=== PATIENT | female | born 1990 | race Caucasian/White ===

== ENCOUNTER 2016-05-26 01:33 | Emergency (ER) | payer OTHER ==
[2016-05-26 01:58] VITALS: BP 124/76; PULSE 84; TEMP 98.8; BMI 35.5
--- NOTE | 2016-05-26 02:25 | PDOC ---
History of Present Illness - General Chief Complaint: Pain Stated Complaint: PAIN ON RIGHT SIDE Time Seen by Provider: 05/26/16 02:16 History Source: Patient Exam Limitations: No Limitations - History of Present Illness Travel History: No Initial Comments: 05/26/16 02:17 25-year-old female who complains of sudden onset of abdominal pain which radiates to her back on the right side. the patient has significant surgical historyof gastric bypass 3 years prior. Patient states that she has been nauseous without vomiting. Patient denies any chest pain, no shortness of breath, no fever, no chills, no dyspnea, no dysphagia, no headache, no blurry vision, no hematuria, no dysuria, no vaginal discharge, no vomiting, no diarrhea , no bloody stools. Timing/Duration: reports: getting worse Quality: reports: moderate, severe Abdominal Pain Onset Location: reports: RLQ Pain Radiation: reports: back Activities at Onset: reports: none Aggravating Factors: improves with: None Alleviating Factors: improves with: None Past History - Past Medical History Allergies/Adverse Reactions: Allergies Allergy/AdvReac Type Severity Reaction Status Date / Time No Known Allergies Allergy Verified 05/26/16 01:52 Home Medications: Ambulatory Orders NK [No Known Home Medication] 05/26/16 Anemia: No Asthma: No COPD: No - Psycho/Social/Smoking Cessation Hx Suicidal Ideation: No Smoking Status: No Smoking History: Never smoked Have you smoked in the past 12 months: No Number of Cigarettes Smoked Daily: 0 Information on smoking cessation initiated: No Hx Alcohol Use: No Drug/Substance Use Hx: No *Physical Exam - Vital Signs Last Vital Signs Temp Pulse Resp BP Pulse Ox 98.8 F 84 14 124/76 100 05/26/16 01:53 05/26/16 01:53 05/26/16 01:53 05/26/16 01:53 05/26/16 01:53 - Physical Exam General Appearance: Yes: Appropriately Dressed. No: Apparent Distress Respiratory/Chest: positive: Lungs Clear, Normal Breath Sounds, Respiratory Distress. negative: Chest Tender, Accessory Muscle Use, Decreased Breath Sounds , Paradoxal Breathing, Crackles, Rales, Rhonchi, Stridor, Wheezing, Hyperresonant, Plerual Rub Cardiovascular: positive: Regular Rhythm, Regular Rate, S1, S2. negative: Bradycardia, Diastolic Murmur, Systolic Murmur, Gallop/S3, Gallop/S4, Irregularly Irregular, Irregular Gastrointestinal/Abdominal: positive: Soft, Organomegaly, Tenderness Musculoskeletal: positive: CVA Tenderness (R) Extremity: positive: Normal Capillary Refill, Normal Inspection, Normal Range of Motion, Pelvis Stable Integumentary: positive: Normal Color, Dry, Warm Neurologic: positive: engineering secretary II-XII NML intact, Fully Oriented, Alert, Normal Mood/ Affect, Normal Response, Motor Strength 09/27 ED Treatment Course - LABORATORY CBC & Chemistry Diagram: 05/26/16 02:24 05/26/16 02:24 Progress Note - Progress Note Progress Note: Patient examined here in ER. Patient had labs drawn and are within acceptable limits. UA done suggestive of UTI. Patient had first dose PO ABx here in ER. CT done shows NADP. Medical Decision Making - Medical Decision Making 05/26/16 06:35 Patient to be discharged home with oral Abx. Patient to follow up with PCP as needed. *DC/Admit/Observation/Transfer Diagnosis at time of Disposition: Urinary tract infection Qualifiers: Urinary tract infection type: acute cystitis Hematuria presence: without hematuria Qualified Code(s): N30.00 - Acute cystitis without hematuria - Discharge Dispostion Disposition: HOME Condition at time of disposition: Stable Admit: No
[2016-05-26 02:34] LABS: MCH 27.3 pg (25.7-33.7); MCHC 31.6 g/dl (32.0-36.0); MEAN CELL VOLUME 86.2 fl (80-96); MEAN PLT VOLUME 7.8 fl (7.5-11.1); PLATELET COUNT 273 K/MM3 (134-434); RDW 15.2 % (11.6-15.6); WHITE BLOOD COUNT 6.9 K/mm3 (4.0-10.0)
[2016-05-26 02:58] LABS: AMYLASE 91 U/L (25-115); ANION GAP 13 (8-16); BILIRUBIN,TOTAL 0.4 mg/dL (0.2-1.0); C-REACTIVE PROTEIN < 0.3 MG/DL (0.00-0.3); CALCIUM 8.3 mg/dL (8.5-10.1); CO2 25 mmol/L (21-32); CREATININE 0.8 mg/dL (0.55-1.02); GLUCOSE,RANDOM 84 mg/dL (74-106); SGOT/AST 31 U/L (15-37); SGPT/ALT 21 U/L (12-78); TOT PROT 7.9 g/dl (6.4-8.2)
[2016-05-26 02:59] LABS: ALK PHOS 61 U/L (45-117)
[2016-05-26 03:09] LABS: URINE APPEARANCE CLOUDY; URINE BILIRUBIN NEGATIVE (NEGATIVE); URINE BLOOD NEGATIVE (NEGATIVE); URINE COLOR DKYELLOW; URINE GLUCOSE (UA) NEGATIVE (NEGATIVE); URINE KETONE TRACE (NEGATIVE); URINE NITRITE NEGATIVE (NEGATIVE); URINE PROTEIN NEGATIVE (NEGATIVE); URINE UROBILINOGEN 2.0 E.U/dl E.U./dl (0.2-1.0)
[2016-05-26 03:21] LABS: URINE LEUK ESTERASE 3+ (NEGATIVE)
[2016-05-26 03:23] LABS: URINE BACTERIA FEW /hpf (NONE SEEN); URINE MUCUS RARE; URINE RBC 6 /hpf (0-3); URINE WBC 18 /hpf (3-5)
[2016-05-26] MEDS ORDERED: KETOROLAC TROMETHAMINE 30 MG/1 ML VIAL ONE (03:59)
[2016-05-26] MEDS ORDERED: KETOROLAC TROMETHAMINE 30 MG/1 ML VIAL IVPUSH ONE (04:01)
[2016-05-26] MEDS ORDERED: CIPROFLOXACIN 250 MG TABLET (RESTRICTED TO ID) PO ONE (04:34)
== END 2016-05-26 06:58 | disposition home or self-care (01) ==
LOC: JER 01:33
PROC: 3E0333Z Introduction of Anti-inflammatory into Peripheral Vein, Percutaneous Approach (ICD-10-PCS; principal; 2016-05-26)
DX: N30.00 Acute cystitis without hematuria (principal); Z98.84 Bariatric surgery status
CPT/HCPCS: 36415; 74176-TC; 80053; 81003; 81015; 82150; 83690; 84703; 85025; 86140; 87086; 96374; 99283-25

== ENCOUNTER 2016-10-15 18:36 | Emergency (ER) | payer OTHER ==
[2016-10-15 19:00] VITALS: BP 131/76; PULSE 80; TEMP 98.3; BMI 34.3
[2016-10-15 19:47] LABS: URINE APPEARANCE CLEAR; URINE BILIRUBIN NEGATIVE (NEGATIVE); URINE BLOOD NEGATIVE (NEGATIVE); URINE COLOR YELLOW; URINE GLUCOSE (UA) NEGATIVE (NEGATIVE); URINE KETONE TRACE (NEGATIVE); URINE NITRITE NEGATIVE (NEGATIVE); URINE PROTEIN NEGATIVE (NEGATIVE); URINE UROBILINOGEN 2.0 E.U/dl E.U./dl (0.2-1.0)
--- NOTE | 2016-10-15 19:51 | PDOC ---
*Physical Exam - Vital Signs Last Vital Signs Temp Pulse Resp BP Pulse Ox 98.3 F 80 18 131/76 100 10/15/16 18:56 10/15/16 18:56 10/15/16 18:56 10/15/16 18:56 10/15/16 18:56 - Physical Exam General Appearance: Yes: Appropriately Dressed. No: Apparent Distress Neck: negative: Tender, Rigid Respiratory/Chest: positive: Lungs Clear Gastrointestinal/Abdominal: positive: Soft. negative: Tender, Organomegaly ED Treatment Course - ADDITIONAL ORDERS Additional order review: Laboratory Results 10/15/16 19:30 Urine HCG, Qual Positive Medical Decision Making - Medical Decision Making 10/15/16 19:49 wants test only; no COs *DC/Admit/Observation/Transfer Diagnosis at time of Disposition: test positive - Discharge Dispostion Disposition: HOME Condition at time of disposition: Stable Admit: No - Post Discharge Activity Work/School Note: Back to Work
[2016-10-15 19:54] LABS: URINE LEUK ESTERASE 1+ (NEGATIVE)
[2016-10-15 20:00] LABS: URINE MUCUS FEW; URINE RBC 3 /hpf (0-3); URINE WBC 3 /hpf (3-5)
--- NOTE | 2016-10-15 20:03 | PDOC ---
*Physical Exam - Vital Signs Last Vital Signs Temp Pulse Resp BP Pulse Ox 98.3 F 80 18 131/76 100 10/15/16 18:56 10/15/16 18:56 10/15/16 18:56 10/15/16 18:56 10/15/16 18:56 ED Treatment Course - ADDITIONAL ORDERS Additional order review: Laboratory Results 10/15/16 19:30 Urine Color Yellow Urine Appearance Clear Urine pH 5.0 Urine Protein Negative Urine Glucose (UA) Negative Urine Ketones Trace H Urine Blood Negative Urine Nitrite Negative Urine Bilirubin Negative Urine Urobilinogen 2.0 e.u/dl H Ur Leukocyte Esterase 1+ H D Urine HCG, Qual Positive - Additional Consults Reason/Comments: please follow up with Urine culture; you may need a urine culture *DC/Admit/Observation/Transfer Diagnosis at time of Disposition: test positive Urinary tract infection in mother during Qualifiers: Trimester: first trimester Qualified Code(s): O23.41 - Unspecified infection of urinary tract in , first trimester - Discharge Dispostion Disposition: HOME Condition at time of disposition: Stable - Referrals Referrals: Mireille Farrell NP [Primary Care Provider] - - Patient Instructions - Post Discharge Activity Work/School Note: Back to Work
== END 2016-10-15 20:20 | disposition home or self-care (01) ==
LOC: JER 18:36 → JERFT 18:36
DX: Z32.01 Encounter for pregnancy test, result positive (principal)
CPT/HCPCS: 81003; 81015; 84703; 87086; 99281-25

== ENCOUNTER 2016-12-08 12:28 | Emergency (ER) | payer OTHER ==
[2016-12-08 12:43] VITALS: BP 117/64; PULSE 74; TEMP 99.1; BMI 35.0
--- NOTE | 2016-12-08 14:06 | PDOC ---
History of Present Illness - General Chief Complaint: Vaginal Bleeding Stated Complaint: BLEEDING (14 WKS ) Time Seen by Provider: 12/08/16 13:31 History Source: Patient Exam Limitations: No Limitations - History of Present Illness Initial Comments: 12/08/16 13:59 Patient is a 26-year-old f, 14 weeks . LMP 09/10/16. . Presents to the ER with vaginal bleedingonly noted on the paper when wiping. Patient reports that last night she had intercourse with her . In the am after using the facilities noted blood on the paper after wiping. No active bleeding , minor cramping, which she reports that she has been having. No other vaginal discharge. No fever, no n/v/d. Allergies: No known allergies Medications: Family History: Non-contributory Social History: Denies smoking, alcohol use, or IVDU Review of Systems GENERAL/CONSTITUTIONAL: No fever or chills. No weakness. No weight change. HEAD, EYES, EARS, NOSE AND THROAT: No change in vision. No ear pain or discharge. No sore throat. CARDIOVASCULAR:No chest pain or shortness of breath. RESPIRATORY: No cough, wheezing, or hemoptysis. GASTROINTESTINAL: No nausea, vomiting, diarrhea or constipation. No rectal bleeding. GENITOURINARY: No dysuria, frequency, or change in urination. No hematuria, blood only noted when wiping. MUSCULOSKELETAL: No joint or muscle swelling or pain. No neck or back pain. SKIN : No rash or easy bruising. Physical Exam: GENERAL: The patient is awake, alert, and fully oriented, in no acute distress. EYES: Pupils equal, round and reactive to light, extraocular movements intact, sclera anicteric, conjunctiva clear. ENT: Ears normal, nares patent, oropharynx clear without exudates. Moist mucous membranes. No uvula deviation NECK: Normal range of motion, supple without lymphadenopathy, JVD, or masses. LUNGS: Breath sounds equal, clear to auscultation bilaterally. No wheezes, and no crackles. HEART: Regular rate and rhythm, normal S1 and S2 without murmur, rub or gallop. ABDOMEN: Soft, nontender, normoactive bowel sounds. No guarding, no rebound. No masses. No bruising or abrasions GENITALIA: Cervical os is closed, no bleeding noted in vault. MUSCULOSKELETAL: Normal range of motion, no edema. No clubbing or cyanosis. No cords, erythema, or tenderness. No CVA Tenderness with fist palpation. SKIN: Warm, Dry, normal turgor, no rashes or lesions noted. Past History - Past Medical History Allergies/Adverse Reactions: Allergies Allergy/AdvReac Type Severity Reaction Status Date / Time No Known Allergies Allergy Verified 12/08/16 12:43 Home Medications: Ambulatory Orders Ciprofloxacin 500 mg PO BID #10 ml 05/26/16 Anemia: No Asthma: No COPD: No - Surgical History GI Surgery: Yes (Gastric bypass) - Reproductive History Is Patient Now?: Yes (#): 3 Para: 2 - Psycho/Social/Smoking Cessation Hx Anxiety: No Suicidal Ideation: No Smoking Status: No Smoking History: Never smoked Have you smoked in the past 12 months: No Number of Cigarettes Smoked Daily: 0 Hx Alcohol Use: No Drug/Substance Use Hx: No Substance Use Type: None *Physical Exam - Vital Signs Last Vital Signs Temp Pulse Resp BP Pulse Ox 99.1 F 74 20 117/64 100 12/08/16 12:41 12/08/16 12:41 12/08/16 12:41 12/08/16 12:41 12/08/16 12:41 ED Treatment Course - LABORATORY CBC & Chemistry Diagram: 12/08/16 13:50 - RADIOLOGY Radiology Studies Ordered: Category Date Time Status TRANSVAGINAL US PREG [US] Stat Ultrasound 12/08/16 13:46 Ordered Medical Decision Making - Medical Decision Making 12/08/16 14:06 A/P: Patient here for vaginal bleeding, currently 14 weeks . Plan: CBC, type and screen Beta HcG transvaginal US. Laboratory Tests 12/08/16 12/08/16 12/08/16 13:50 13:50 13:50 WBC 6.2 RBC 3.92 Hgb 11.8 Hct 34.9 MCV 89.2 MCH 30.2 D MCHC 33.9 RDW 14.8 Plt Count 207 D MPV 7.8 Neutrophils % 61.4 D Lymphocytes % 31.1 D Monocytes % 6.6 Eosinophils % 0.3 Basophils % 0.6 Beta HCG, Quant 44508.9 Urine Color Yellow Urine Appearance Clear Urine pH 6.0 Ur Specific [place] 1.020 Urine Protein Negative Urine Glucose (UA) Negative Urine Ketones Negative Urine Blood 1+ H Urine Nitrite Negative Urine Bilirubin Negative Urine Urobilinogen 2.0 H Ur Leukocyte Esterase Negative Urine RBC <1 Urine WBC 1 Ur Epithelial Cells Rare Urine Mucus Rare Beta hCG consistent with intrauterine 12-15 weeks. Ultrasound consistent with 12 week 5 day . Patient can follow up with Dr. Buckner , postcoital irritation. If any increased vaginal bleeding, cramping, or any other concerns may return to ER or return in 48 hours for recheck a beta hCG. Patient verbalized understanding. I discussed the physical exam findings, ancillary test results and final diagnoses with the patient. I answered all of the patient's questions. The patient was satisfied with the care received and felt comfortable with the discharge plan and treatment plan. The patient will call to arrange follow-up and will return to the Emergency Department with any new, persistent or worsening symptoms. 12/10/16 13:10 *DC/Admit/Observation/Transfer Diagnosis at time of Disposition: Intrauterine - Discharge Dispostion Disposition: HOME Condition at time of disposition: Good Admit: No - Referrals Referrals: Juan Pagan MD [Primary Care Provider] - Gage Buckner MD [Staff Physician] - - Patient Instructions Additional Instructions: Please return to the ER if any increased vaginal bleeding, pain or other concerns. Follow up with Dr. Buckner in the next few days.
[2016-12-08 14:24] LABS: BASOPHIL 0.6 % (0-2.0); EOSINOPHIL 0.3 % (0-4.5); MCH 30.2 pg (25.7-33.7); MCHC 33.9 g/dl (32.0-36.0); MEAN CELL VOLUME 89.2 fl (80-96); MEAN PLT VOLUME 7.8 fl (7.5-11.1); NEUTROPHILS 61.4 % (42.8-82.8); PLATELET COUNT 207 K/MM3 (134-434); RDW 14.8 % (11.6-15.6); WHITE BLOOD COUNT 6.2 K/mm3 (4.0-10.0)
[2016-12-08 14:26] LABS: URINE APPEARANCE CLEAR; URINE BILIRUBIN NEGATIVE (NEGATIVE); URINE BLOOD 1+ (NEGATIVE); URINE COLOR YELLOW; URINE GLUCOSE (UA) NEGATIVE (NEGATIVE); URINE KETONE NEGATIVE (NEGATIVE); URINE LEUK ESTERASE NEGATIVE (NEGATIVE); URINE NITRITE NEGATIVE (NEGATIVE); URINE PROTEIN NEGATIVE (NEGATIVE)
[2016-12-08 14:29] LABS: URINE MUCUS RARE; URINE RBC <1 /hpf (0-3); URINE WBC 1 /hpf (3-5)
== END 2016-12-08 17:32 | disposition home or self-care (01) ==
LOC: JER 12:28
DX: O20.8 Other hemorrhage in early pregnancy (principal); Z3A.14 14 weeks gestation of pregnancy
CPT/HCPCS: 36415; 76817-TC; 81003; 81015; 84702; 85025; 86850; 86900; 86901; 87086; 99283-25

== ENCOUNTER 2018-04-09 10:15 | Day surgery (SDC) | payer OTHER ==
[2018-04-07 13:28] VITALS: BMI 38.7
[2018-04-09] MEDS ORDERED: BUPIVACAINE HCL/PF 2.5 MG/ML - 30 ML VIAL IJ ONE (12:40)
[2018-04-09] MEDS ORDERED: oxyCODONE HCL 5 MG TABLET PO PRN (14:10)
[2018-04-09] MEDS ORDERED: ONDANSETRON 4 MG/2 ML VIAL IVPUSH PRN (14:10)
[2018-04-09] MEDS ORDERED: LACTATED RINGERS SOLUTION 1,000 ML IV SCH (14:15)
[2018-04-09] MEDS ORDERED: ONDANSETRON 4 MG/2 ML VIAL IVPUSH ONE (14:28)
--- NOTE | 2018-04-09 15:06 | OP ---
DATE OF OPERATION: 04/09/2018 PREOPERATIVE DIAGNOSIS: Right knee loose bodies. POSTOPERATIVE DIAGNOSIS: Right knee loose bodies. PROCEDURE: Right knee arthroscopy with excision of loose bodies. SURGEON: Bradly Gilbert MD POSTOPERATIVE CONDITION: Stable. COMPLICATIONS: None. INDICATIONS: This is a pleasant 27-year-old female who is having mechanical symptoms of the right knee. MRI demonstrated patellofemoral chondral breakdown as well as multiple loose bodies. Treatment options including nonoperative versus operative measures were reviewed. Operative risks were reviewed in detail including bleeding, infection, neurovascular injury, need for further surgery, postoperative pain and stiffness, formation of further loose bodies, production of osteoarthritis. We discussed medical risks such as heart attack, stroke, DVT, PE, and . I reviewed the rehabilitation after surgery. I addressed all the patient's questions and concerns. She voiced understanding and elected to proceed. DESCRIPTION OF PROCEDURE: The patient was brought to the operating room where general anesthesia was administered. The right lower extremity was then prepped and draped in the usual sterile fashion. A preoperative dose of antibiotics was given, and the usual timeout procedure was performed. The portal sites were then marked out and injected subcutaneously with 0.25% Marcaine. The lateral portal was now established, and the arthroscope was passed into the knee. Examination of the patellofemoral joint demonstrated high-grade fraying and fissuring and chondral loss of the patella side. The trochlea demonstrated wear and partial thickness chondral loss. The arthroscope was passed down the notch. Here, ACL and PCL seem to be intact. The arthroscope was passed into the medial compartment. Here, loose bodies were visualized. Medial portal was established under spinal needle localization. Loose body was removed here. The meniscus was inspected and found to be unremarkable. The chondral surfaces were unremarkable. The arthroscope was passed into the lateral compartment. There was a complex tear noted mainly at the anterior horn of the lateral meniscus which was debrided using a shaver. The arthroscope was now passed into the rest of the compartment, and the posterior horn and body were noted to be okay. There was partial, mild, chondral fraying. The arthroscope was now passed back into the suprapatellar pouch. Here, another loose body was identified. This was again removed from the knee. At this point, the arthroscope was passed around several times. The posterior aspect was inspected, the gutters were inspected, and no additional loose bodies were seen. Portals were sutured using 3-0 nylon. Sterile dressing was placed. The patient was extubated and transferred to recovery room in stable condition. Diane WRIGHT/[id number]
[2018-04-09] MEDS ORDERED: oxyCODONE HCL 5 MG TABLET ONE (15:29)
[2018-04-09 17:14] VITALS: BP 112/65; PULSE 85; TEMP 98
--- NOTE | 2018-04-17 12:07 | PATH ---
Surgical Pathology Report Patient Name: PRASHANT TORRES Med. Rec. #: [id number] /Age/Gender: 1990 (Age: 27) / F Account: [id number] Location: [facility] AMBULATORY Taken: 04/09/2018 Received: 04/09/2018 Reported: 04/17/2018 Physicians: Bradly Gilbert M.D. Specimen(s) Received RIGHT KNEE LOOSE BODY Clinical History Right knee loose body Final Diagnosis LOOSE BODIES, RIGHT KNEE, REMOVAL: LOOSE BODIES. Electronically Signed Daphne Bear M.D. Gross Description Received in formalin labeled "loose bodies right knee," are 4 portions of cartilage and bone ranging from 0.6 x 0.3 x 0.2 cm to 1.5 x 1.3 x 0.7 cm. [employer] Director sections are submitted in one cassette, following decalcification. 04/10/201804/10/2018
== END 2018-04-09 16:15 | disposition home or self-care (01) ==
LOC: FASU 10:15
PROVIDERS: ATTEND Orthopaedic Surgery Sports Medicine
PROC: 0SCC4ZZ Extirpation of Matter from Right Knee Joint, Percutaneous Endoscopic Approach (ICD-10-PCS; principal; 2018-04-09 11:45)
DX: M23.41 Loose body in knee, right knee (principal)
CPT/HCPCS: 84703; 88304-TC; 94760

== ENCOUNTER 2018-05-08 12:22 | Day surgery (SDC) | payer OTHER ==
[2018-05-07 14:05] VITALS: BMI 41.3
[2018-05-08 14:22] VITALS: TEMP 97.9
[2018-05-08 15:05] VITALS: BP 124/70; PULSE 67
--- NOTE | 2018-05-12 16:58 | PATH ---
Surgical Pathology Report Patient Name: PRASHANT TORRES Med. Rec. #: [id number] /Age/Gender: 1990 (Age: 27) / F Account: [id number] Location: [facility]ENDOS[facility] Taken: 05/08/2018 Received: 05/11/2018 Reported: 05/12/2018 Physicians: Alan Dempsey D.O. 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 GASTROENTERIC ANASTOMOSIS, BIOPSY: GASTRIC AND SMALL BOWEL (JUNCTIONAL) MUCOSA WITH MILD CHRONIC INFLAMMATION AND PROMINENT LYMPHOID AGGREGATES. IMMUNOHISTOCHEMICAL STAIN FOR H. PYLORI IS NEGATIVE. B. GASTRIC POUCH, BIOPSY: GASTRIC MUCOSA WITH MILD CHRONIC GASTRITIS. IMMUNOHISTOCHEMICAL STAIN FOR H. PYLORI IS NEGATIVE. Electronically Signed Nereida Pecae M.D. Gross Description A. Received in formalin, labeled "gastroenteric anastomosis" are 3 willard, irregular portions of soft tissue ranging from 0.2-0.3 cm. in greatest dimension. The specimens are submitted in toto in one cassette. B. Received in formalin, labeled "biopsy gastric pouch" are 2 willard, irregular portions of soft tissue averaging 0.5 cm. in greatest dimension. The specimens are submitted in toto in one cassette. 05/11/2018 [facility]05/11/2018
== END 2018-05-08 14:58 | disposition home or self-care (01) ==
LOC: JASU-ENDO 12:22
PROVIDERS: ATTEND Internal Medicine Gastroenterology
PROC: 0DB68ZX Excision of Stomach, Via Natural or Artificial Opening Endoscopic, Diagnostic (ICD-10-PCS; principal; 2018-05-08 13:30)
DX: K29.50 Unspecified chronic gastritis without bleeding (principal); K63.89 Other specified diseases of intestine; E78.5 Hyperlipidemia, unspecified
CPT/HCPCS: 84703; 88305-TC; 88342-TC

== ENCOUNTER 2018-05-28 09:11 | Day surgery (SDC) | payer OTHER ==
[2018-05-28 09:21] VITALS: BMI 41.1
[2018-05-28] MEDS ORDERED: SODIUM CHLORIDE 1,000 ML IV STA ×2 (09:40→12:40)
[2018-05-28] MEDS ORDERED: ONDANSETRON 4 MG/2 ML VIAL IVPUSH ONE (09:40)
[2018-05-28] MEDS ORDERED: ACETAMINOPHEN 1000 MG/100 ML VIAL (NON FORMULARY) IVPB ONE (09:48)
[2018-05-28] MEDS ORDERED: ONDANSETRON 4 MG/2 ML VIAL ONE (09:56)
[2018-05-28] MEDS ORDERED: ACETAMINOPHEN INJECTION 100 ML IVPB ONE (09:56)
--- NOTE | 2018-05-28 10:11 | PDOC ---
*Physical Exam - Vital Signs Last Vital Signs Temp Pulse Resp BP Pulse Ox 99.5 F 102 H 18 109/70 100 05/28/18 09:18 05/28/18 09:18 05/28/18 09:18 05/28/18 09:18 05/28/18 09:18 ED Treatment Course - LABORATORY CBC & Chemistry Diagram: 05/29/18 05:15 05/29/18 05:15 Medical Decision Making - Medical Decision Making 05/28/18 10:10 Case reviewed with DARRON Johnson. Plan as per [employer]. *DC/Admit/Observation/Transfer Diagnosis at time of Disposition: Cholecystitis - Discharge Dispostion Disposition: HOME Condition at time of disposition: Good - Prescriptions - Referrals - Patient Instructions - Post Discharge Activity
--- NOTE | 2018-05-28 10:23 | PDOC ---
History of Present Illness - General Chief Complaint: Pain Stated Complaint: PAIN Time Seen by Provider: 05/28/18 09:26 History Source: Patient Exam Limitations: No Limitations - History of Present Illness Travel History: No Initial Comments: 05/28/18 10:20 27 y/o female who was seen by Dr. Garvin last week for gallstones has a cholystectomy scheduled for 06/13 but due to the pain, fver, and nausea increasing over the past 2-3 days, she came to the ED and notified Dr. Garvin. The patient denies urinary or bowel complaints. Pt also denies RLQ pain which she describes a RUQ sharp gnawing discomfort. Timing/Duration: reports: constant, getting worse Quality: reports: moderate, cramping, sharpness Abdominal Pain Onset Location: reports: RUQ Pain Radiation: reports: no radiation Activities at Onset: reports: none Aggravating Factors: improves with: None Alleviating Factors: improves with: None Past History - Travel Traveled outside of the country in the last 30 days: No Close contact w/someone who was outside of country & ill: No - Past Medical History Allergies/Adverse Reactions: Allergies Allergy/AdvReac Type Severity Reaction Status Date / Time No Known Allergies Allergy Verified 12/08/16 12:43 Home Medications: Ambulatory Orders Omeprazole 40 mg PO DAILY 05/28/18 Anemia: No Asthma: No Cancer: No Cardiac Disorders: No CVA: No COPD: No CHF: No Dementia: No Diabetes: No GI Disorders: Yes (GERD) Disorders: No HTN: No Hypercholesterolemia: No Liver Disease: No Seizures: No Thyroid Disease: No - Surgical History Abdominal Surgery: Yes (GASTRIC BYPASS 2012) Appendectomy: No Cardiac Surgery: No Cholecystectomy: No GI Surgery: Yes (Gastric bypass) Lung Surgery: No Neurologic Surgery: No Orthopedic Surgery: No - Reproductive History (#): 3 Para: 2 - Immunization History Immunization Up to Date: Yes - Suicide/Smoking/Psychosocial Hx Smoking Status: No Smoking History: Never smoked Have you smoked in the past 12 months: No Number of Cigarettes Smoked Daily: 0 Hx Alcohol Use: No Drug/Substance Use Hx: No Substance Use Type: Alcohol Hx Substance Use Treatment: No Patient Lives Alone: No Lives with/in: spouse/SO Abd/GI Specific PMHX - Complaint Specific PMHX GERD: Yes Review of Systems - Review of Systems Able to Perform ROS?: Yes Constitutional: Yes: Fever HEENTM: No: Symptoms Reported Respiratory: No: Symptoms reported Cardiac (ROS): No: Symptoms Reported ABD/GI: Yes: Nausea, Poor Appetite, Vomiting, Abdominal cramping. No: Constipated, Diarrhea, Poor Fluid Intake : No: Symptoms Reported Musculoskeletal: No: Symptoms Reported Integumentary: No: Symptoms Reported Neurological: No: Symptoms reported *Physical Exam - Vital Signs Last Vital Signs Temp Pulse Resp BP Pulse Ox 99.5 F 102 H 18 109/70 100 05/28/18 09:18 05/28/18 09:18 05/28/18 09:18 05/28/18 09:18 05/28/18 09:18 - Physical Exam General Appearance: Yes: Nourished, Appropriately Dressed. No: Apparent Distress Respiratory/Chest: positive: Lungs Clear, Normal Breath Sounds. negative: Respiratory Distress, Accessory Muscle Use Cardiovascular: positive: Regular Rhythm, Tachycardia. negative: Murmur Gastrointestinal/Abdominal: positive: Soft, Tenderness (ruq , + murphys, mild RLQ tenderness, no flank tenderness) Musculoskeletal: negative: CVA Tenderness Extremity: positive: Normal Capillary Refill. negative: Pedal Edema Integumentary: positive: Normal Color, Warm, Moist Neurologic: positive: Motor Strength 5/5 (ambulatory) Moderate Sedation - Procedure Monitoring Vital Signs: Procedure Monitoring Vital Signs Temperature 99.5 F 05/28/18 09:18 Pulse Rate 102 H 05/28/18 09:18 Respiratory Rate 18 05/28/18 09:18 Blood Pressure 109/70 05/28/18 09:18 O2 Sat by Pulse Oximetry (%) 100 05/28/18 09:18 ED Treatment Course - LABORATORY CBC & Chemistry Diagram: 05/28/18 09:49 05/28/18 09:49 - RADIOLOGY Radiology Studies Ordered: Category Date Time Status GALLBLADDER US [US] Stat Ultrasound 05/28/18 10:17 Ordered Medical Decision Making - Medical Decision Making 05/28/18 10:24 CC: ruq pain with n/v/fever, recent dx of gallstones , sched sx date 06/13 w/ Dr Garvin Exam: RUQ tenderness, tachy, low grade temp Plan: urine, fluids, iv tylenol, zofran, labs, and gallbladder u/s ordered 05/28/18 12:08 Laboratory Tests 05/08/18 05/28/18 05/28/18 12:38 09:49 09:49 WBC 4.9 Hgb 13.0 Hct 37.6 Neutrophils % 86.4 H D Lymphocytes % 6.8 L D Sodium Potassium Chloride Carbon Dioxide Anion Gap BUN Creatinine Random Glucose Calcium Urine Ketones Trace H Urine Urobilinogen 2.0 H Ur Leukocyte Esterase 1+ H Urine WBC (Auto) 11 Urine RBC (Auto) 2 Urine HCG, Qual Negative 05/28/18 09:49 WBC Hgb Hct Neutrophils % Lymphocytes % Sodium 138 Potassium 4.1 Chloride 106 Carbon Dioxide 24 Anion Gap 8 BUN 13 Creatinine 0.7 Random Glucose 102 Calcium 8.2 L Urine Ketones Urine Urobilinogen Ur Leukocyte Esterase Urine WBC (Auto) Urine RBC (Auto) Urine HCG, Qual Spoke to Dr. Garvin the surgeon and is recommending keeping patient nothing by mouth. Please ordered for IV cefazolin urine culture added. Nothing by mouth status ordered *DC/Admit/Observation/Transfer Diagnosis at time of Disposition: Cholecystitis - Discharge Dispostion Decision to Admit order: Yes - Referrals - Patient Instructions - Post Discharge Activity
[2018-05-28 10:33] LABS: BASO % 0.2 % (0-2.0); EOS % 0.4 % (0-4.5); HEMATOCRIT 37.6 % (32.4-45.2); LYMPH % 6.8 % (8-40); MCH 30.7 pg (25.7-33.7); MCHC 34.6 g/dl (32.0-36.0); MEAN PLT VOLUME 7.6 fl (7.5-11.1); MONO % 6.2 % (3.8-10.2); NEUT % 86.4 % (42.8-82.8); PLATELET COUNT 240 K/MM3 (134-434); RBC 4.23 M/mm3 (3.60-5.2); RDW 14.7 % (11.6-15.6); WHITE BLOOD COUNT 4.9 K/mm3 (4.0-10.0)
[2018-05-28 10:36] LABS: URINE APPEARANCE SLCLOUDY; URINE BILIRUBIN NEGATIVE (<2.0 mg/dL); URINE COLOR YELLOW; URINE GLUCOSE (UA) NEGATIVE (NEGATIVE); URINE KETONE TRACE (NEGATIVE); URINE LEUK ESTERASE 1+ (NEGATIVE); URINE NITRITE NEGATIVE (NEGATIVE); URINE PROTEIN NEGATIVE (NEGATIVE)
[2018-05-28 10:51] LABS: EPI CELLS MODERATE /HPF (FEW); URINE BACTERIA RARE /hpf (NONE SEEN); URINE MUCUS RARE
[2018-05-28] MEDS ORDERED: morphine CARPU-JECT 2 MG/1 ML DISP.SYRIN IVPUSH ONE (10:57)
[2018-05-28] MEDS ORDERED: morphine SULFATE 4 MG/ML VIAL ONE (10:58)
[2018-05-28 11:01] LABS: ALBUMIN 3.7 g/dl (3.4-5.0); ALK PHOS 61 U/L (45-117); ANION GAP 8 MMOL/L (8-16); BILIRUBIN,TOTAL 0.9 mg/dL (0.2-1); BLOOD UREA NITROGEN 13 mg/dL (7-18); CALCIUM 8.2 mg/dL (8.5-10.1); CHLORIDE 106 mmol/L (98-107); CO2 24 mmol/L (21-32); CREATININE 0.7 mg/dL (0.55-1.3); GLUCOSE,RANDOM 102 mg/dL (74-106); LIPASE 92 U/L (73-393); POTASSIUM 4.1 mmol/L (3.5-5.1); SGOT/AST 15 U/L (15-37); SGPT/ALT 14 U/L (13-61); SODIUM 138 mmol/L (136-145)
[2018-05-28] MEDS ORDERED: CEFAZOLIN 1 GM in DEXTROSE 5%-WATER - 50 ML IVPB ONE (12:00)
[2018-05-28] MEDS ORDERED: CEFAZOLIN 1 GM/D5W 1 GM/50 ML BAG ONE (12:03)
--- NOTE | 2018-05-28 12:16 | HP ---
Admitting History and Physical - Admission History of Present Illness: The patient is a 27 yo female who presents today for RUQ/upper abd pain with nausea and emesis. Her symptoms started about 1 year ago and were thought to be GERD related until recently when she had an EGD completed in April of 2018. Her study revealed no ulcers and mild gastritis. An ultrasound was obtained and it revealed gallstones. This current episode of pain/nausea started this weekend. She was attempting to control the symptoms with her diet but the pain persisted. She took an oxycodone to help relieve her symptoms but had little improvement. Her last meal was yesterday. Last bowel movement this am. History Source: Patient Limitations to Obtaining History: No Limitations - Past Medical History Cardiovascular: No: Deep Vein Thrombosis Pulmonary: No: Asthma Gastrointestinal: Yes: Constipation, Gastritis, GERD, Other (s/p EGD 05/08/18 with evidence of gastiritis on biopsy) Hepatobiliary: Yes: Cholelithiasis Renal/: No: Renal Inusuff, Hematuria ...LMP: 04/02/18 Heme/Onc: No: Bleeding Disorder - Past Surgical History Past Surgical History: Yes: Bariatric Surgery (2012), Tubal Ligation (2018) Additional Past Surgical History: Right knee arthroscopy: removal of loose bodies - Smoking History Smoking history: Never smoked Have you smoked in the past 12 months: No Aproximately how many cigarettes per day: 0 - Alcohol/Substance Use Hx Alcohol Use: No Home Medications - Allergies Allergies/Adverse Reactions: Allergies Allergy/AdvReac Type Severity Reaction Status Date / Time No Known Allergies Allergy Verified 12/08/16 12:43 - Home Medications Home Medications: Ambulatory Orders Omeprazole 40 mg PO DAILY 05/28/18 Review of Systems - Review of Systems Constitutional: denies: Chills, Fever Neck: denies: Decreased ROM Cardiovascular: denies: Chest Pain, Edema, Palpitations Respiratory: denies: Cough, SOB Gastrointestinal: reports: Abdominal Pain, Nausea, Vomiting Genitourinary: denies: Burning, Dysuria Musculoskeletal: denies: Decreased ROM, Joint Pain Integumentary: reports: Eczema. denies: Bruising Hematology/Lymphatic: denies: Easily Bruised, Excessive Bleeding Physical Examination Vital Signs: Vital Signs Temperature 99.5 F 05/28/18 09:18 Pulse Rate 102 H 05/28/18 09:18 Respiratory Rate 18 05/28/18 09:18 Blood Pressure 109/70 05/28/18 09:18 O2 Sat by Pulse Oximetry (%) 100 05/28/18 09:18 Constitutional: Yes: Well Nourished, Calm Eyes: Yes: Conjunctiva Clear. No: Sclera Icterus HENT: Yes: WNL, Atraumatic, Normocephalic Neck: Yes: WNL, Supple, Trachea Midline Cardiovascular: Yes: WNL, Regular Rate and Rhythm Respiratory: Yes: WNL, Regular, CTA Bilaterally Gastrointestinal: Yes: WNL, Soft, Tenderness (mild RUQ with palpation). No: Palpable Mass, Tenderness, Rebound Extremities: No: Calf Tenderness, Deformity Edema: No Peripheral Pulses WNL: Yes Peripheral Pulses: Left Doralis Pedis: 2+, Right Dorsalis Pedis: 2+ Wound/Incision: Yes: Clean/Dry, Well Approximated Neurological: Yes: WNL, Alert, Oriented ...Motor Strength: LUE, LLE, RUE, RLE Psychiatric: Yes: WNL, Alert, Oriented Labs: CBC, BMP 05/28/18 09:49 05/28/18 09:49 Laboratory Tests 05/28/18 05/28/18 09:49 09:49 Total Bilirubin 0.9 AST 15 ALT 14 Alkaline Phosphatase 61 Total Protein 7.0 Albumin 3.7 Lipase 92 Urine Color Yellow Urine Appearance Slcloudy Urine pH 5.0 Ur Specific Brainard 1.021 Urine Protein Negative Urine Glucose (UA) Negative Urine Ketones Trace H Urine Blood Negative Urine Nitrite Negative Urine Bilirubin Negative Urine Urobilinogen 2.0 H Urine WBC (Auto) 11 Urine RBC (Auto) 2 Ur Epithelial Cells Moderate Urine Bacteria Rare Urine Mucus Rare Laboratory Tests 05/28/18 12:15 Urine HCG, Qual Negative Imaging - Results Ultrasound: Other (05/08/18: cholelithaisis) Problem List - Problems (1) Cholelithiasis Assessment/Plan: D/w Dr. Garvin and will plan for laparoscopic cholecystectomy today, the patient remains npo. IV abx at time of the surgery DVT with SCDs, ambulation and heparin SQ Will admit to the surgical service/Dr. Garvin Check t&S, INR and urine preg test Code(s): K80.20 - CALCULUS OF GALLBLADDER W/O CHOLECYSTITIS W/O OBSTRUCTION
[2018-05-28 12:31] LABS: INR 1.02 (0.83-1.09)
[2018-05-28] MEDS ORDERED: KETOROLAC TROMETHAMINE 15 MG/ML VIAL IVPUSH PRN (12:35)
[2018-05-28] MEDS ORDERED: ONDANSETRON 4 MG/2 ML VIAL IVPUSH PRN ×4 (13:00→21:00)
[2018-05-28] MEDS ORDERED: LACTATED RINGERS SOLUTION 1,000 ML IV SCH ×2 (13:30→15:00)
--- NOTE | 2018-05-28 13:41 | PN ---
Progress Note (short form) - Note Progress Note: Attending Surgeon 27 y/o female seen in the office 05/20/18 w/dxed symptomatic gallbladder disease was scheduled for elctive lap leigh 06/12/18; she developed pain and nausea and fever a # days ago and came to the ER today; pain required Morphine in the ER; will admit for lap leigh possible open today; r/b/t/a's d/w her and informed consent obtained. Bradly Garvin MD FACS
[2018-05-28] MEDS ORDERED: ceFAZolin SODIUM 1 GM VIAL IVPB ONE (13:48)
--- NOTE | 2018-05-28 14:48 | OP ---
Operative Note - Note: Operative Date: 05/28/18 Pre-Operative Diagnosis: biliary colic; chronic cholecystitis; cholelithiasis Operation: laparoscopic cholecystectomy Findings: chronic cholecystitis/cholelithiasis Post-Operative Diagnosis: Same as Pre-op Surgeon: Bradly Garvin Permanent Waver: Chikis Lind Anesthesiologist/FREIGHT FLAGMAN: Luis Roy Anesthesia: General Specimens Removed: gallbladder and contents Estimated Blood Loss (mls): 10
--- NOTE | 2018-05-28 15:45 | SURG ---
Surgery Staff Training And Development Manager Note Staff Training And Development Manager: Chikis Lind PA-C Date of Service: 05/28/18 Diagnosis: biliary colic; chronic cholecystitis; cholelithiasis Procedure: laparoscopic cholecystectomy I was present for the entirety of the operative procedure. For further detail, please refer to operative report. Visit type - Case Type Case Type: ED Admission - Emergency Emergency Visit: Yes Care time: The patient presented to the Emergency Department on the above date and was hospitalized for further evaluation of their emergent condition. - New patient This patient is new to me today: Yes Date on this admission: 05/28/18
[2018-05-28] MEDS: LACTATED RINGERS SOLUTION 1,000 ML IV SCH ×2 (17:25→20:46)
[2018-05-28] MEDS: oxyCODONE HCL 5 MG TABLET PO PRN (18:20)
[2018-05-28] MEDS ORDERED: ACETAMINOPHEN 325 MG TABLET (FP) PO PRN (19:00)
[2018-05-28] MEDS: KETOROLAC TROMETHAMINE 15 MG/ML VIAL IVPUSH PRN (20:39)
[2018-05-28] MEDS: HEPARIN NA (PORCINE) 5,000 UNITS/ML 1ML VIAL SQ SCH (21:44)
[2018-05-28] MEDS ORDERED: HEPARIN NA (PORCINE) 5,000 UNITS/ML 1ML VIAL SQ SCH (22:00)
[2018-05-29] MEDS: oxyCODONE HCL 5 MG TABLET PO PRN ×2 (00:16→09:00)
[2018-05-29 06:47] LABS: BASO % 0.1 % (0-2.0); HEMATOCRIT 32.3 % (32.4-45.2); HEMOGLOBIN 10.5 GM/dL (10.7-15.3); LYMPH % 17.9 % (8-40); MCH 29.4 pg (25.7-33.7); MCHC 32.5 g/dl (32.0-36.0); MEAN CELL VOLUME 90.3 fl (80-96); MEAN PLT VOLUME 7.9 fl (7.5-11.1); MONO % 8.4 % (3.8-10.2); NEUT % 73.6 % (42.8-82.8); PLATELET COUNT 211 K/MM3 (134-434); RBC 3.57 M/mm3 (3.60-5.2); RDW 14.6 % (11.6-15.6); WHITE BLOOD COUNT 3.5 K/mm3 (4.0-10.0)
[2018-05-29 07:42] LABS: ALBUMIN 2.7 g/dl (3.4-5.0); ALK PHOS 66 U/L (45-117); ANION GAP 6 MMOL/L (8-16); BILIRUBIN,TOTAL 0.4 mg/dL (0.2-1); BLOOD UREA NITROGEN 7 mg/dL (7-18); CALCIUM 7.7 mg/dL (8.5-10.1); CHLORIDE 108 mmol/L (98-107); CO2 25 mmol/L (21-32); CREATININE 0.5 mg/dL (0.55-1.3); GLUCOSE,RANDOM 108 mg/dL (74-106); SGOT/AST 126 U/L (15-37); SGPT/ALT 83 U/L (13-61); SODIUM 139 mmol/L (136-145); TOT PROT 5.4 g/dl (6.4-8.2)
[2018-05-29] MEDS: HEPARIN NA (PORCINE) 5,000 UNITS/ML 1ML VIAL SQ SCH (09:01)
--- NOTE | 2018-05-29 09:47 | OP ---
DATE OF OPERATION: 05/28/2018 PREOPERATIVE DIAGNOSIS: Biliary colic, chronic cholecystitis and cholelithiasis. POSTOPERATIVE DIAGNOSIS: Biliary colic, chronic cholecystitis and cholelithiasis. PROCEDURE: Laparoscopic cholecystectomy. SURGEON: Bradly Garvin MD CHASSIS WIRER: Chikis Lind PA-C ANESTHESIA: General. OPERATIVE FINDINGS: Chronic cholecystitis and cholelithiasis. The rest of the findings were unremarkable. DESCRIPTION OF PROCEDURE: The patient was placed on the operating room table in supine position. After the induction of general anesthesia, the patient's abdomen was prepped with ChloraPrep and draped in sterile fashion. Time-out was taken and then pneumoperitoneum established above the umbilicus using a Veress needle. Once 15 mm of intra-abdominal pressure was obtained, a 5-mm port was placed at the umbilicus. Additional lateral 5-mm ports and a subxiphoid 12-mm port were placed and laparoscopy carried out, and the previously noted findings were observed. The gallbladder was placed on cephalad and lateral traction, and dissection was begun at the neck of the gallbladder where the peritoneum was opened medially and laterally using blunt and sharp dissection and electrocautery. Dissection continued in the triangle of Calot where the cystic duct was identified coursing from the neck of the gallbladder distally to the common bile duct. It was dissected proximally and distally for length. Similarly, the artery was similarly identified and dissected. A critical view of safety was taken, and then the cystic duct divided proximally and distally using Endo More after it was clipped twice proximally and distally with large hemoclips. The artery was similarly clipped and divided. Hemostasis was checked for and noted to be good and then the gallbladder was removed from the liver bed in a retrograde fashion using electrocautery. Prior to removal from the edge of the liver, hemostasis was again verified and then the gallbladder removed from the edge of the liver, placed in an EndoCatch, and brought out through the subxiphoid port. Pneumoperitoneum was reestablished, hemostasis verified again, and then the 5-mm lateral and subxiphoid ports were removed under laparoscopic vision without evidence of bleeding from the port sites. The umbilical port was removed and the pneumoperitoneum evacuated. All port sites were infiltrated with 0.5% Marcaine and the skin edges closed with 4-0 Biosyn in a subcuticular and continuous fashion. Steri-Strips and Band-Aid dressings were placed and the procedure terminated at this point and the patient aroused from general anesthesia and transferred to the post anesthesia care unit in stable condition awake and alert. ESTIMATED BLOOD LOSS: 10 mL. REPLACEMENTS: Crystalloid. SPECIMENS: Gallbladder and contents to pathology. I, Bradly Garvin, was physically present in the operating room from the time the patient was placed on the operating room table until she was transferred to the post anesthesia care unit in my accompaniment. MD MARIANNE Markham/[id number] MTDD
--- NOTE | 2018-05-29 09:48 | PN ---
Progress Note (short form) - Note Progress Note: Surgery POD #1 Laparoscopic cholecystectomy patient seen and examined at bedside with no complaints. She has been OOB ambulating without assistance, voiding and passing gas. She denies any CP, SOB, N/V, Fever or chills. She is tolerating her clear diet and would like to eat. Vital Signs Temp 98.5 F 05/29/18 09:25 Pulse 66 05/29/18 09:25 Resp 18 05/29/18 09:25 BP 117/62 05/29/18 09:25 Pulse Ox 99 05/28/18 17:10 Intake & Output 05/28/18 05/28/18 05/29/18 11:59 23:59 11:59 Intake Total 1999 1100 Output Total 20 Balance 1979 1099 Weight 232 lb Intake: IV 1999 1100 Lactated Ringers Solution 1100 1,000 ml @ 100 mls/hr IV ASDIR ARTHUR Rx#: [id number] Output: Estimated Blood Loss 20 Other: # Unmeasured Voids Void 2 Height 5 ft 3 in Body Mass Index (BMI) 41.1 Weight Measurement Method Est/Stated by Patient CBC, BMP 05/29/18 05:15 05/29/18 05:15 PE: A&Ox3, NAD Unlabored resp on RA ABD: Obese, soft, NT, ND, incisions c/d/i with surrounding tissues intact no tracking erythema, no d/c. B/L LE compartments soft, supple and non-tenderer with + DP pulses. Problem List - Problems (1) S/P laparoscopic cholecystectomy Assessment/Plan: POD #1 patient doing well s/p lap leigh. 1) Advance diet- regular diet 2) OOB as tolerated 3) d/c planning for home later today 4) F/u with Dr Garvin as scheduled. Evaluation and plan discussed with Dr Garvin. Code(s): Z90.49 - ACQUIRED ABSENCE OF OTHER SPECIFIED PARTS OF DIGESTIVE TRACT
[2018-05-29] MEDS ORDERED: PANTOPRAZOLE 40 MG TABLET (FP) PO SCH ×2 (10:00)
[2018-05-29] MEDS: KETOROLAC TROMETHAMINE 15 MG/ML VIAL IVPUSH PRN (12:06)
[2018-05-29 15:36] VITALS: BP 103/54; PULSE 71; TEMP 98.6
--- NOTE | 2018-06-01 14:36 | PATH ---
Surgical Pathology Report Patient Name: PRASHANT TORRES Med. Rec. #: [id number] /Age/Gender: 1990 (Age: 27) / F Account: [id number] Location: AMBULATORY SURG Taken: 05/28/2018 Received: 05/29/2018 Reported: 06/01/2018 Physicians: Bradly Garvin MD PHYSICIAN EMERGENCY DEPT Specimen(s) Received GALLBLADDER Clinical History Cholecystitis Final Diagnosis GALLBLADDER, CHOLECYSTECTOMY: CHRONIC CHOLECYSTITIS AND CHOLELITHIASIS. Electronically Signed Pati Streeter M.D. Gross Description Received in formalin, labeled "gallbladder," is a 10.0 x 3.8 x 3.0 cm. gallbladder with a 0.2 cm. in length portion of cystic duct attached. The outer surface is willard green and varies from smooth to shaggy. The lumen contains green, tenacious bile as well as abundant yellow, irregular to fragmented choleliths ranging from 0.1-0.7 cm in greatest dimension. The mucosa is green and velvety. The wall of the gallbladder measures 0.1 cm. in thickness. Knitting Machine Operator sections are submitted in one cassette. /05/29/2018 saudi05/29/2018
== END 2018-05-29 16:20 | disposition home or self-care (01) ==
LOC: JER 09:11 → JASUSAT 12:09 → J7W 17:30 → JASUSAT 05-29 16:20
PROVIDERS: ATTEND Surgery
PROC: 0FT44ZZ Resection of Gallbladder, Percutaneous Endoscopic Approach (ICD-10-PCS; principal; 2018-05-28 13:30)
DX: K80.10 Calculus of gallbladder with chronic cholecystitis without obstruction (principal)
CPT/HCPCS: 36415; 80053; 81003; 81015; 83690; 84703; 85025; 85610; 86850; 86900; 86901; 87086; 88304-TC; 94010; 94760; 99283-25; J0131; J1644; J7030

== ENCOUNTER 2022-08-27 04:19 | Day surgery (SDC) | payer OTHER ==
[2022-08-21 12:48] VITALS: BMI 48.6
[2022-08-27 06:25] VITALS: RESP 20
[2022-08-27] MEDS ORDERED: LIDOCAINE HCL/PF 2% SDV 5ML VIAL ONE (06:55)
[2022-08-27] MEDS ORDERED: SODIUM CHLORIDE 0.9% P/F 10 ML VIAL IJ ONE (06:55)
[2022-08-27] MEDS ORDERED: PROPOFOL 40 ML ONE (06:59)
[2022-08-27] MEDS ORDERED: oxyCODONE HCL 5 MG TABLET PO PRN ×2 (07:11)
[2022-08-27] MEDS ORDERED: ONDANSETRON 4 MG/2 ML VIAL IVPUSH PRN (07:11)
[2022-08-27] MEDS ORDERED: BUPIVACAINE HCL/PF 0.5% (5MG/ML) 10 ML VIAL ONE (07:13)
[2022-08-27] MEDS ORDERED: LACTATED RINGERS SOLUTION 1,000 ML IV SCH (07:15)
[2022-08-27] MEDS ORDERED: LIDOCAINE HCL 1%, 10 MG/ML (10ML VIAL) MDV ONE (07:16)
[2022-08-27] MEDS ORDERED: MIDAZOLAM HCL 2 MG/2 ML SINGLE DOSE VIAL ONE (07:54)
[2022-08-27] MEDS ORDERED: ceFAZolin SODIUM 1 GM VIAL ONE ×2 (08:03→08:04)
[2022-08-27] MEDS ORDERED: BUPIVACAINE HCL/PF 0.5% (5 MG/ML) 30 ML VIAL IJ ONE (08:10)
[2022-08-27] MEDS ORDERED: ceFAZolin SODIUM 1 GM VIAL IVPB ONE (08:10)
[2022-08-27] MEDS ORDERED: LIDOCAINE HCL 1%, 10 MG/ML (20ML VIAL) NR ONE (08:10)
[2022-08-27] MEDS ORDERED: PROPOFOL 20 ML ONE (08:17)
[2022-08-27] MEDS ORDERED: KETOROLAC TROMETHAMINE 30 MG/1 ML VIAL ONE (08:19)
[2022-08-27] MEDS ORDERED: ONDANSETRON 4 MG/2 ML VIAL ONE (08:28)
[2022-08-27] MEDS ORDERED: BACITRACIN ZINC 15 GM TUBE TOPICAL OINTMENT ONE (08:30)
[2022-08-27 11:10] VITALS: BP 128/80; PULSE 80; TEMP 98
== END 2022-08-27 11:00 | disposition home or self-care (01) ==
LOC: JASU-SURG 04:19
PROVIDERS: ATTEND Surgery
PROC: 0HB4XZZ Excision of Neck Skin, External Approach (ICD-10-PCS; principal; 2022-08-27 08:00)
DX: L72.3 Sebaceous cyst (principal)
CPT/HCPCS: 81025; 88304-TC